=== PATIENT | female | born 1955 | race Caucasian/White ===

== ENCOUNTER 2020-09-27 11:30 | Outpatient (CLI) | payer MEDICARE, MEDICAID, SELFPAY ==
--- NOTE | 2020-09-27 11:39 | MM_ITS ---
WS: [id number] BILATERAL SCREENING DIGITAL MAMMOGRAM WITH CAD HISTORY: SCREENING COMPARISON: 06/04/2018 Bilateral CC and MLO views submitted. Computer aided detection analyzed. Breast composition: There are scattered areas of fibroglandular density. No suspicious masses, microc alcifications or architectural distortion. Benign calcifications in each breast are stable. Portion o f the posterior superior LEFT breast is obscured by cardiac generator. MM/[place] [id number] IMPRESSION: BI-RADS: 2-Benign FOLLOW UP: 1 Year Follow-up
== END 2020-09-27 11:31 | disposition home or self-care (01) ==
LOC: RADSHAW 11:34
PROVIDERS: Family Provider Internal Medicine; PCP Internal Medicine; Visit Provider Internal Medicine
DX: Z12.31 Encounter for screening mammogram for malignant neoplasm of breast (principal)
CPT/HCPCS: 77067

== ENCOUNTER 2021-06-02 11:49 | Emergency (ER) | payer MEDICARE, MEDICAID, SELFPAY ==
[2021-06-02 11:56] VITALS: BP 99/69; PULSE 87; RESP 17; TEMP 37.3; O2SAT 96; BMI 24.0
[2021-06-02 12:13] VITALS: BP 109/72; PULSE 82; RESP 16; TEMP 37; O2SAT 97
--- NOTE | 2021-06-02 12:17 | XRR_ITS ---
PROCEDURE INFORMATION: Exam: XR Left Tibia and Fibula Exam date and time: 06/02/2021 12:17 PM Age: 65 years old Clinical indication: Injury or trauma; Fall; Blunt trauma; Lower leg; Left; Prior surgery; Surgery type: Knee TECHNIQUE: Imaging protocol: XR Left tibia and fibula. Views: 2 views. COMPARISON: CR Knee 2 views, LEFT [id number] 07/12/2019 3:42 PM FINDINGS: Bones/joints: There is oblique fracture through the distal fibula. Patient is status post total knee replacement. The distal femoral and proximal tibial components appear intact with no obvious complication. There is an ankle joint effusion. There is a well corticated appearing osseous structure distal to the medial malleolus which has a chronic appearance. Soft tissues: There is edema and/or hematoma in the soft tissues surrounding the ankle and foot. XR/XR tibia fibula LT 2V [id number] IMPRESSION: There is an oblique fracture through the distal fibula with adjacent soft tissue hematoma and an ankle joint effusion.
--- NOTE | 2021-06-02 12:17 | XRR_ITS ---
PROCEDURE INFORMATION: Exam: XR Left Foot Exam date and time: 06/02/2021 12:17 PM Age: 65 years old Clinical indication: Injury or trauma; Fall; Blunt trauma; Foot; Left; Prior surgery; Surgery type: Knee TECHNIQUE: Imaging protocol: XR Left foot. Views: 3 or more views. COMPARISON: CR Knee 2 views, LEFT [id number] 07/12/2019 3:42 PM FINDINGS: Bones/joints: There is an oblique fracture through the distal fibula. There is a well corticated appearing osseous structure adjacent to the medial malleolus which has a chronic appearance. Soft tissues: There is edema and/or hematoma in the soft tissues surrounding the ankle and foot. XR/XR foot LT min 3V* [id number] IMPRESSION: There is an oblique fracture through the distal fibula with adjacent soft tissue hematoma.
--- NOTE | 2021-06-02 12:19 | W.ED.EXTPRO ---
HPI - Extremity Problem General: Chief complaint: Extremity Injury, Lower Stated complaint: left foot injury and urinary pain Time Seen by Provider: 06/02/21 12:09 Source: patient Limitations: no limitations History of Present Illness: HPI Narrative: This patient presents emerged part because of the left lower extremity injury. She states that she was getting ready to walk her dogs and they became quite rambunctious and she tripped over the dog's and there dog hotel. She states she landed twisting her left leg and foot. She states it is painful to bear weight on that left leg. She denies head injury or other injury. There was no prodrome it was pure ground-level fall. Has had left and right knee TKAs. She also has an associated question if we will obtain a urinalysis while she is here in the emergency department. She states that her daughter is concerned she might have a recurrent urinary tract infection. She states she has been having dark urine for the last couple of weeks. She denies any frequency dysuria back pain, blood in her urine, fevers etc. She apparently had rhabdo sometime in the past and they are concerned this might be operative again. She does relate that she had a prolonged seizure resulting in her rhabdo. She has had no change in her medications although she did stop her meloxicam in the last day or so because of she is concerned it might be an aspirin containing medication. She cannot take acetaminophen because of liver concerns. Onset (ago): hour(s) Pain Consistency: constant Location: left Quality: aching Radiation: none Relieving factors: elevation Exacerbating factors: weight bearing and walking Associated symptoms: Reports no associated symptoms; Deny chest pain, fever(s) or rash Review of Systems Const: Denies: fever(s) or chills Eyes: Denies: change in vision ENMT: Denies: throat pain or mouth pain Card: Denies: chest pain, palpitations or irregular heart rhythm Resp: Denies: dyspnea, productive cough or non-productive cough GI: Denies: abdominal pain, nausea or vomiting : Denies: flank pain, difficulty voiding, dysuria, urinary frequency or hematuria Musc: Denies: neck pain or back pain Skin/Breast: Denies: rash or skin swelling Neuro: Denies: headache(s), frequent falls, dizziness or vertigo Psych: Denies: depression Endo: Denies: polyuria or polydipsia Shakeel/Lymph: Reports: easy bruising; Denies: easy bleeding Physical Exam Narrative: EXAM NARRATIVE: She is alert, speech is goal-directed, Const: COMMON NORMALS: no acute distress, average body habitus and patient oriented x3 GENERAL APPEARANCE: cooperative ORIENTATION/CONSCIOUSNESS: Yes awake and Yes oriented to person HENMT: COMMON NORMALS: normocephalic and atraumatic HEAD & SCALP: normal to inspection, normocephalic and atraumatic FACE & SINUS: normal facial exam Eye: COMMON NORMALS: Equal, round and reactive pupils present and conjunctivae normal CONJUNCTIVA: Yes conjunctivae normal PUPIL: Yes Equal, round and reactive pupils present Neck/C-Spine: COMMON NORMALS: full ROM Chest: COMMONS NORMALS: normal inspection of the chest Resp: COMMON NORMALS: normal respiratory effort Cardio: COMMON NORMALS: Peripheral pulses 2+ throughout PERIPHERAL PULSES: Peripheral pulses 2+ throughout Back/Pelvis: COMMON NORMALS: thoracic and lumbar spine normal to inspection, no thoracic nor lumbar tenderness and thoraco-lumbar ROM normal Extremity: LEFT LOWER EXTREMITY: Yes knee joint, Yes lower leg (She has minimal tenderness over the fibular head. No deformity. She has s), Yes ankle joint (Left ankle is noted to be swollen and ecchymotic. Range of motion is limit) and Yes foot & digits (Left foot has swelling over the dorsal one third of the left foot. There i) Left foot and digits: Yes neurovascular exam Neuro: COMMON NORMALS: patient oriented x3, moves all extremities, no focal motor deficits and no sensory deficits noted SENSORIUM/ORIENTATION: Yes oriented to person GAIT: Yes Antalgic gait present (Gait is abnormal due to left lower extremity injury.) Course Reevaluation(s): Reevaluation #1: Discussed all findings with the patient to include normal urinalysis etc. She is still curious why her urine is dark but she does admit to me that she is taking vitamins and drinking at least 7-8 bottles of water a day. Her urinalysis is reassuring I feel likely this color changes related to vitamin ingestion. She has no other history at this time to suggest other etiologies. She acknowledges our discussion. Also advised orthopedics follow-up this coming week etc. She again was appreciative of care. Consultations: Consultation #1: Discussed with Dr. Corrales orthopedics qa automation architect. He recommended style of immobilization and he will follow her up as an outpatient. Time: 13:13 Vital Signs: Vital signs: Vital Signs Temperature 98.6 F 06/02/21 12:13 Pulse Rate 82 06/02/21 12:13 Respiratory Rate 16 06/02/21 12:28 Blood Pressure 109/72 06/02/21 12:13 Pulse Oximetry 99 06/02/21 12:28 MDM - Extremity (Nontraumatic) Lab Data: Labs: Lab Results 06/02/21 Range/Units 13:00 Urine Color Yellow (Yellow) Urine Appearance Clear (CLEAR) Urine pH 6 (5-7) Ur Specific Gravit y 1.005 (1.005-1.030) Urine Protein Neg (Negative) Urine Glucose (UA) Norm (Normal) Urine Ketones Negative (Negative) Urine Blood Neg (Negative) Urine Nitrate Negative (Negative) Urine Bilirubin Neg (Negative) Urine Urobilinogen Norm (Negative) mg/dL Ur Leukocyte Alyson ase Negative (Negative) Discharge Plan Discharge Condition: Stable Prescriptions: New morphine 15 mg tablet 15 mg PO BID PRN (Reason: pain) Qty: 10 RF: 0 No Action metoprolol succinate 25 mg tablet extended release 24 hr 25 mg PO DIRECTED 30 Days Qty: 60 RF: 3 olanzapine 5 mg tablet 5 mg PO DAILY Qty: 30 RF: 3 Discharge Orders: Discharge ED (Routine); Ordered 06/02/21 Ordered By: Vinny Mauricio Referrals: Odilia Goetz MD [Primary Care Provider] - Anthony Corrales MD [Physician] - 4-7 days (ED follow up for distal fibular fx) Discharge Diet: Usual diet Discharge Activity: Use walker/crutches as instructed and Return to work/school after cleared by PCP/Specialist Patient Instructions: Ankle Fracture (ED) Coding Level of Care Code ED Adult Protective Caseworker for Tara Fwd Exam Comprehensive
[2021-06-02 12:28] VITALS: RESP 16; O2SAT 99
[2021-06-02] MEDS: morphine 4 mg/mL SDV 1 mL IM (12:28)
[2021-06-02 13:21] LABS: Charge for UA Resulting for Rev
[2021-06-02 13:32] LABS: Specific Gravity, Urine 1.005 (1.005-1.030); Urine Appearance Clear (CLEAR); Urine Color Yellow (Yellow); pH Urine 6 (5-7)
[2021-06-02 13:33] LABS: Add Urine Microscopic? NO; Bilirubin Urine Neg (Negative); Blood Urine Neg (Negative); Glucose Urine UA Norm (Normal); Ketones Urine Negative (Negative); Leukocyte Esterase Urine Negative (Negative); Nitrate Urine Negative (Negative); Protein Urine Neg (Negative); Urobilinogen Urine Norm (Negative)
--- NOTE | 2021-06-02 13:33 | PC.NURSE ---
Patients pain is down to 5/10. Left extremity has boot in place by PT and she reports that made it feel much better .
[2021-06-02 13:48] VITALS: BP 129/90; PULSE 76; RESP 16; TEMP 36.9; O2SAT 100
[2021-06-02 14:11] VITALS: BP 134/89; PULSE 80; RESP 16; TEMP 36.8
== END 2021-06-02 14:13 ==
PROVIDERS: Emergency Provider Emergency Medicine; PCP Internal Medicine
DX: M79.672 Pain in left foot (principal); R30.0 Dysuria
CPT/HCPCS: 73590; 73630; 81003; 96372; 97760; 99283; J2270; L4361

== ENCOUNTER → 2021-06-05 10:49 | Outpatient (BNVA) | payer MEDICARE, MEDICAID, SELFPAY | PROVIDERS: PCP Internal Medicine; Referring Provider Emergency Medicine; Visit Provider Orthopaedic Surgery | DX: S82.832A Other fracture of upper and lower end of left fibula, initial encounter for closed fracture (principal); X58.XXXA Exposure to other specified factors, initial encounter | CPT/HCPCS: 73610 ==

== ENCOUNTER → 2021-06-11 15:49 | Outpatient (BNVA) | payer MEDICARE, MEDICAID, SELFPAY | PROVIDERS: PCP Internal Medicine; Visit Provider Orthopaedic Surgery | DX: S82.832A Other fracture of upper and lower end of left fibula, initial encounter for closed fracture (principal); Z01.812 Encounter for preprocedural laboratory examination; Z20.822 Contact with and (suspected) exposure to COVID-19; X58.XXXA Exposure to other specified factors, initial encounter | CPT/HCPCS: 73610; 87635 ==

== ENCOUNTER 2021-06-13 11:34 | Day surgery (SDC) | payer MEDICARE, MEDICAID, SELFPAY ==
[2021-06-12 12:49] VITALS: BMI 23.7
[2021-06-13] VITALS (13 sets, daily range): BP systolic 113–161; BP diastolic 77–105; PULSE 75–101; RESP 16–20; TEMP 36.2–37.1; O2SAT 94–100
--- NOTE | 2021-06-13 | SCC_ITS ---
Procedure Done: Patient left lateral malleolar 10.3 seconds of fluoroscopic guidance, for a cumulative dose of 0.26 mGy, was provided to Dr. Corrales by the radiology department. C-arm images of the LEFT ankle were saved for the patient's permanent record. JANE
[2021-06-13] MEDS: sodium chloride 0.9% 1,000 ML 30 ML IV (12:32)
--- NOTE | 2021-06-13 13:28 | ANES.PREANE2 ---
Pre-Anesthetic Assessment Pre-Anesthetic Assessment: Height/Weight: Height 1.8 m Weight 77.111 kg Temp Pulse Resp BP Pulse Ox 98.7 F 101 H 19 H 113/77 94 06/13/21 11:54 06/13/21 11:54 06/13/21 11:54 06/13/21 11:54 06/13/21 11:54 Preop Diagnosis: Fracture Left lateral malleolus Proposed Procedure: Operation Date: 06/13/21 13:00 Proposed Procedures p ORIF Tibia/Fibula 25246 S82.832A(Left) - Anthony Corrales MD Was Beta Jeffry taken within 24 hours: Yes Was Clonidine taken within 24 hours: N/A Last intake: Intake Last Liquid Date 06/13/21 Last Liquid Time 07:00 Last Solid Date 06/12/21 Last Solid Time 20:00 Social: Social History: Tobacco and No alcohol Exam: Pre-Anes Outpt Exam: alert, oriented x 3 and regular rate & rhythm Airway: Submandibular: WNL Cervical ROM: WNL MP: 2 Dentition: Caps CV/HEM: CV/HEM: HTN Comments: Pacemaker GI: GI: GERD Neuropsych: Neuropsych: Anxiety and Depression Anesthetic Plan: ASA status: 3 Anesthesia: General Risk of > 500 ml blood loss (7ml/kg in children): No Meds/Allergies Current Medications: Current Medications Generic Name Dose Route Start Last Admin Trade Name Freq PRN Reason Stop Dose Admin Sodium Chloride 1,000 mls @ 30 ml s/hr 06/13/21 11:45 06/13/21 12:32 Sodium Chloride 0.9% IV 06/14/21 11:44 30 mls/hr .Q24H EVELIO Administration Data Anesthesia Cardiac Studies: No Data to Display
--- NOTE | 2021-06-13 14:21 | W.PM.OPSUD ---
Surgery/Procedure H&P Update DATE OF PROCEDURE: June 13, 2021 DATE H&P PERFORMED: 06/11/21 H&P UPDATE INFORMATION: I have reviewed H&P completed within last 30 days, I have examined patient prior to procedure and No changes to prior documentation PREOP DIAGNOSIS: Fracture Left lateral malleolus PLANNED PROCEDURE: Operation Date: 06/13/21 13:00 Proposed Procedures p ORIF Tibia/Fibula 86810 S82.832A(Left) - Anthony Corrales MD
--- NOTE | 2021-06-13 15:22 | XR_ITS ---
WS: [id number] C-ARM RADIOGRAPHS LEFT ANKLE; 3 IMAGES HISTORY: OR PICS COMPARISON: 06/11/2021 Intraoperative plate and screw fixation distal fibular fracture. Reduction of the fracture. The tibio talar joint space is normally aligned. Widened ankle mortise has been reduced. XR/XR ankle LT 2V [id number] IMPRESSION: Intraoperative fixation and reduction distal fibular fracture. Fracture now in good alignment. Normal alignment of the ankle mortise.
[2021-06-13] MEDS: fentaNYL 50 mcg/mL INJ 2mL IVP ×2 (15:35→15:40)
--- NOTE | 2021-06-13 15:35 | PM.OP ---
Operative Report Date of procedure: June 13, 2021 Pre-op Diagnosis: Fracture Left lateral malleolus Post-op diagnosis: same Post-op Findings: Same Procedure Done: Patient left lateral malleolar Implants: Garland 8 hole Varizx lateral malleolar plate Pathology: none sent Anesthesia: General Estimated blood loss (mL): 10 Tourniquet time (min): 31 Complications: None Findings: The patient had a spiral fracture of the lateral malleolus at the level of the mortise with widening of her medial tibiotalar clear space Condition: stable Disposition: PACU Procedure: The patient was taken to the operating room and given a general anesthesia. She was given 2 g of Ancef and positioned supine with a bump under the left hip. A timeout was performed. A tourniquet was inflated to 300 mmHg. A 5 cm long incision was made from the tip of the lateral malleolus proximally along the fibula dissection was carried down full-thickness through the periosteum and scar tissue about the fracture revealing the lateral malleolus. A lobster claw clamp was used to reduce the lateral malleolus and anterior to posterior 3.5 millimeters screw was placed to provide preliminary fixation. The plate was then contoured to the lateral fibula and fixed proximally to locking in 1 bicortical screw and distally with 1 nonlocking screw compressing the plate to bone and 3 additional locking screws. Intraoperative imaging showed satisfactory alignment of the fracture. Deep tissues were closed with 2-0 Vicryl. Skin was closed with skin ernestina. The incision was covered with Xeroflo gauze, Telfa, 4 x 4's and the leg wrapped in compressive web roll and an Ramsey wrap. She was placed in a postop boot, extubated, and taken recovery room in stable condition.
[2021-06-13] MEDS: HYDROmorphone 1 mg/mL INJ 1 mL 0.5 MG IVP ×2 (15:55→16:05)
--- NOTE | 2021-06-13 16:22 | ANE.PACU2 ---
Inpatient post-anesthesia follow up: Airway intact: Yes Vital signs: Temperature 97.6 F Pulse Rate 76 Respiratory Rate 17 Blood Pressure 152/87 Pulse Oximetry 100 Oxygen Delivery Me thod Room Air Oxygen Flow Rate Fraction of Inspir ed Oxygen Hydration adequate: Yes Nausea and vomiting: No Pain level: 2 Mental status: Baseline
[2021-06-13] MEDS: oxyCODONE 5 mg IR Tab/Cap PO (16:41)
== END 2021-06-13 17:10 | disposition home or self-care (01) ==
PROVIDERS: PCP Internal Medicine; Visit Provider Orthopaedic Surgery
PROC: 0QSK04Z Reposition Left Fibula with Internal Fixation Device, Open Approach (ICD-10-PCS; CPT 27828; principal; 2021-06-13 12:50)
DX: S82.62XA Displaced fracture of lateral malleolus of left fibula, initial encounter for closed fracture (principal); X58.XXXA Exposure to other specified factors, initial encounter; I10 Essential (primary) hypertension; Z95.0 Presence of cardiac pacemaker; K21.9 Gastro-esophageal reflux disease without esophagitis; F41.9 Anxiety disorder, unspecified; F32.9 Major depressive disorder, single episode, unspecified
CPT/HCPCS: 27792; 73600; 76000; 96365; C1713; J0690; J1100; J1170; J1580; J2405; J2704; J3010; J7030

== ENCOUNTER → 2021-07-16 14:45 | Outpatient (BNVA) | payer MEDICARE, MEDICAID, SELFPAY | PROVIDERS: PCP Internal Medicine; Visit Provider Orthopaedic Surgery | DX: S82.832A Other fracture of upper and lower end of left fibula, initial encounter for closed fracture (principal); X58.XXXA Exposure to other specified factors, initial encounter | CPT/HCPCS: 73610 ==

== ENCOUNTER → 2021-08-14 13:17 | Outpatient (BNVA) | payer MEDICARE, MEDICAID, SELFPAY | PROVIDERS: PCP Internal Medicine; Visit Provider Orthopaedic Surgery | DX: S82.832A Other fracture of upper and lower end of left fibula, initial encounter for closed fracture (principal); X58.XXXA Exposure to other specified factors, initial encounter | CPT/HCPCS: 73610 ==

== ENCOUNTER → 2021-09-04 13:49 | Outpatient (BNVA) | payer MEDICARE, MEDICAID, SELFPAY | PROVIDERS: PCP Internal Medicine; Visit Provider Orthopaedic Surgery | DX: Z98.890 Other specified postprocedural states (principal); S82.832D Other fracture of upper and lower end of left fibula, subsequent encounter for closed fracture with routine healing; X58.XXXD Exposure to other specified factors, subsequent encounter | CPT/HCPCS: 73610 ==

== ENCOUNTER → 2021-09-13 12:03 | Outpatient (BNVA) | payer MEDICARE, MEDICAID, SELFPAY | PROVIDERS: PCP Internal Medicine; Visit Provider Orthopaedic Surgery | DX: Z01.812 Encounter for preprocedural laboratory examination (principal); Z20.822 Contact with and (suspected) exposure to COVID-19 | CPT/HCPCS: 87635 ==

== ENCOUNTER 2021-09-19 11:36 | Day surgery (SDC) | payer MEDICARE, MEDICAID, SELFPAY ==
[2021-09-18 13:06] VITALS: BMI 23.0
[2021-09-19] VITALS (15 sets, daily range): BP systolic 146–168; BP diastolic 71–112; PULSE 59–97; RESP 5–25; TEMP 36.1–36.8; O2SAT 93–100
[2021-09-19] MEDS: sodium chloride 0.9% 1,000 ML 30 ML IV (12:41)
--- NOTE | 2021-09-19 13:01 | ANES.PREANE2 ---
Pre-Anesthetic Assessment Pre-Anesthetic Assessment: Height/Weight: Height 1.8 m Weight 74.843 kg Temp Pulse Resp BP Pulse Ox 97.4 F L 65 18 153/104 99 09/19/21 11:50 09/19/21 11:50 09/19/21 11:50 09/19/21 11:50 09/19/21 11:50 Preop Diagnosis: Painful deep hardware left ankle Proposed Procedure: Operation Date: 09/19/21 12:55 Proposed Procedures p Hardware Removal left fibula 89119 Z98.890(Left) - Anthony Corrales MD Was Beta Jeffry taken within 24 hours: Yes Was Clonidine taken within 24 hours: N/A Last intake: Intake Last Liquid Date 09/18/21 Last Liquid Time 21:00 Last Solid Date 09/18/21 Last Solid Time 15:00 Social: Social History: No alcohol and No tobacco Exam: Pre-Anes Outpt Exam: alert, oriented x 3, clear to auscultation bilaterally and regular rate & rhythm Airway: Submandibular: WNL Cervical ROM: WNL MP: 1 Dentition: Full History/ROS: No significant history except as noted Pulmonary: Pulmonary: None reported CV/HEM: CV/HEM: HTN : : None reported Hepatic: Hepatic: None reported GI: GI: GERD Metabolic: Metabolic: None reported Musc/skel: Musc/skel: None reported Neuropsych: Neuropsych: Anxiety, Depression and Seizure Comments: Patient states she has seizure disorder, not documented Anesthetic Plan: ASA status: 2 Anesthesia: Anesthesia Evaluation and General Risk of > 500 ml blood loss (7ml/kg in children): No Meds/Allergies Current Medications: Current Medications Generic Name Dose Route Start Last Admin Trade Name Freq PRN Reason Stop Dose Admin Sodium Chloride 1,000 mls @ 30 ml s/hr 09/19/21 12:00 09/19/21 12:41 Sodium Chloride 0.9% IV 09/20/21 11:59 30 mls/hr .Q24H EVELIO Administration Data Anesthesia Cardiac Studies: No Data to Display
--- NOTE | 2021-09-19 15:38 | W.PM.OPSUD ---
Surgery/Procedure H&P Update DATE OF PROCEDURE: September 19, 2021 DATE H&P PERFORMED: 09/04/21 H&P UPDATE INFORMATION: I have reviewed H&P completed within last 30 days PREOP DIAGNOSIS: Painful deep hardware left ankle PLANNED PROCEDURE: Operation Date: 09/19/21 12:55 Proposed Procedures p Hardware Removal Ankle(Left) - Anthony Corrales MD
--- NOTE | 2021-09-19 16:44 | PM.OP ---
Operative Report Date of procedure: September 19, 2021 Pre-op Diagnosis: Painful deep hardware left ankle Post-op diagnosis: same Post-op Findings: Same Procedure Done: Removal deep hardware left ankle Pathology: none sent Surgeon: Anthony Corrales Anesthesia: General Estimated blood loss (mL): 10 Tourniquet time (min): 17 Findings: No twin purulence or necrotic tissue was identified. She had. Healing of her fibular fracture Condition: stable Disposition: PACU Brief History: The patient had persistent nonhealing wound over her proximal incision. Radiographs showed union of the fracture. Hardware excision was chosen as can examination of the deep hardware could not be excluded as a source of the persistent wound. Procedure: The patient was taken to the operating room and given a general anesthesia. She is prepped and draped in supine position with a tourniquet on the left thigh. A timeout was performed. The tourniquet was inflated to 350 mmHg. The lateral scar was opened up and dissection carried down full-thickness to the lateral plate. Screws were easily removed with a screwdriver and the plate elevated. Prominent hypertrophic bone about the posterior plate through screw holes was removed with a rongeur. The wound was irrigated with saline. The skin was closed with a simple 1 Prolene vertical mattress sutures. Xeroform gauze and 4 x 4's and sterile dressings were applied. Patient was placed in a postop boot. She was extubated and taken to recovery in stable condition.
[2021-09-19] MEDS: fentaNYL 50 mcg/mL INJ 2mL IVP ×2 (16:51→17:02)
--- NOTE | 2021-09-19 17:34 | ANE.PACU2 ---
Inpatient post-anesthesia follow up: Airway intact: Yes Vital signs: Temperature 98.3 F Pulse Rate 79 Respiratory Rate 25 Blood Pressure 159/110 Pulse Oximetry 94 Oxygen Delivery Me thod Room Air Oxygen Flow Rate Fraction of Inspir ed Oxygen Hydration adequate: Yes Nausea and vomiting: No Pain level: 3 Mental status: Baseline
[2021-09-19] MEDS: oxyCODONE-APAP 5-325 mg Tablet 1 TAB PO (17:52)
== END 2021-09-19 18:15 | disposition home or self-care (01) ==
PROVIDERS: PCP Internal Medicine; Visit Provider Orthopaedic Surgery
PROC: (CPT 20680; principal; 2021-09-19 12:55)
DX: T84.84XA Pain due to internal orthopedic prosthetic devices, implants and grafts, initial encounter (principal); I10 Essential (primary) hypertension; K21.9 Gastro-esophageal reflux disease without esophagitis; Z79.82 Long term (current) use of aspirin
CPT/HCPCS: 20680; J0690; J1100; J1885; J2405; J2704; J3010; J7030

== ENCOUNTER 2021-10-05 15:13 | Emergency (ER) | payer MEDICARE, MEDICAID, SELFPAY ==
--- NOTE | 2021-10-05 15:18 | XRR_ITS ---
PROCEDURE INFORMATION: Exam: XR Left Ankle Exam date and time: 10/05/2021 3:18 PM Age: 66 years old Clinical indication: Injury or trauma; Fall; Sprain or strain; Ankle; Left; Additional info: Injury/pain TECHNIQUE: Imaging protocol: XR Left ankle. Views: 3 or more views. COMPARISON: CR XR ankle LT min 3V* [id number] 09/04/2021 1:56 PM FINDINGS: Bones/joints: Left distal fibular metaphyseal surgical screw with a chronic healed distal fibular metadiaphysis feel fracture. Moderate osteoarthritis about the tibiotalar joint. Soft tissues: Normal. XR/XR ankle LT min 3V* [id number] IMPRESSION: 1. Left distal fibular metaphyseal surgical screw with a chronic healed distal fibular metadiaphysis feel fracture. 2. Moderate osteoarthritis about the tibiotalar joint.
[2021-10-05 15:31] VITALS: BP 137/87; PULSE 92; RESP 16; TEMP 36.7; O2SAT 100
--- NOTE | 2021-10-05 15:42 | XRR_ITS ---
PROCEDURE INFORMATION: Exam: XR Left Foot Exam date and time: 10/05/2021 3:42 PM Age: 66 years old Clinical indication: Injury or trauma; Fall; Sprain or strain; Foot; Left TECHNIQUE: Imaging protocol: XR Left foot. Views: 1 or 2 views. COMPARISON: CR XR foot LT min 3V* [id number] 06/02/2021 12:45 PM FINDINGS: Bones/joints: Normal. Soft tissues: Normal. XR/XR foot LT 2V [id number] IMPRESSION: Negative for abnormality to the bones of the foot, please refer to same-day ankle film for additional findings
[2021-10-05 16:11] VITALS: BP 131/82; PULSE 89; RESP 16; TEMP 37.2; O2SAT 98
--- NOTE | 2021-10-05 16:15 | W.ED.LOWEXIN ---
HPI - Extremity Injury (Lower) General: Chief Complaint: Extremity Injury, Lower Stated Complaint: L ankle injury Time Seen by Provider: 10/05/21 16:14 Source: patient and family Mode of arrival: wheelchair Limitations: no limitations History of Present Illness: HPI Narrative: Patient is a 66-year-old female who presents to ED today for evaluation of left foot and ankle pain. Patient states earlier today she accidentally twisted her foot and ankle. Patient states she had a distal fibular fracture to the ankle back in May that ended up requiring ORIF. Hardware from this fracture was just removed a few weeks ago. She is concerned she may have re-fractured the extremity. She has no other injuries or complaints at this time. States surgical wounds are healing well. MD complaint: ankle injury and foot injury Onset (ago): hour(s) Injury: Left: ankle and foot Type of Injury: inversion Place: home Severity: moderate Relieving factors: immobilization Exacerbating factors: weight bearing, movement and palpation Context: other (twisting) Associated symptoms: Reports no associated symptoms Other symptoms: none Review of Systems Musc: Reports: extremity pain (L foot) and joint pain (L ankle); Denies: neck pain, back pain, joint swelling, joint redness or joint warmth Physical Exam Const: COMMON NORMALS: no acute distress, average body habitus, patient oriented x3, no limitations, healthy appearing, alert and well nourished GENERAL APPEARANCE: cooperative Extremity: COMMON NORMALS: capillary refill normal, no calf tenderness and no pedal edema GENERAL: Yes normal exam except as noted LEFT LOWER EXTREMITY: Yes ankle joint (mild tenderness to lateral ankle) Left ankle: Yes neurovascular exam (normal) and Yes foot & digits (TTP and mild swelling to dorsal foot) Left foot and digits: Yes neurovascular exam (normal) Neuro: COMMON NORMALS: patient oriented x3, moves all extremities, no focal motor deficits and no sensory deficits noted SENSORIUM/ORIENTATION: Yes alert GAIT: Yes Unable to assess gait Course Vital Signs: Vital signs: Vital Signs Temperature 98.9 F 10/05/21 16:11 Pulse Rate 89 10/05/21 16:11 Respiratory Rate 16 10/05/21 16:11 Blood Pressure 131/82 10/05/21 16:11 Pulse Oximetry 98 10/05/21 16:11 MDM - Extremity Injury (Lower) MDM Narrative: Medical decision making narrative: No new fxs on XRs. Her distal fib fracture from 4 months ago appears well healed. Recommend follow up with her surgeon if pain does not improve over the next week or so with conservtive treatment at home. Imaging Data^: XR L ankle: My impression: NAD Radiologist's impression: [facility] [place] [address] XRay Report Signed Patient: Ghazala Maharaj Unit #: [id number] : 1955 Age/Sex: 66 / F ADM Date: 10/05/21 Loc: ER Room/Bed: Attending Dr: Ordering Provider/Ordering MD: Erika Camacho Date of Service: 10/05/21 Procedure(s): XR ankle LT min 3V* [id number] Accession Number(s): [id number] Report Number: [id number] PROCEDURE INFORMATION: Exam: XR Left Ankle Exam date and time: 10/05/2021 3:18 PM Age: 66 years old Clinical indication: Injury or trauma; Fall; Sprain or strain; Ankle; Left; Additional info: Injury/pain TECHNIQUE: Imaging protocol: XR Left ankle. Views: 3 or more views. COMPARISON: CR XR ankle LT min 3V* [id number] 09/04/2021 1:56 PM FINDINGS: Bones/joints: Left distal fibular metaphyseal surgical screw with a chronic healed distal fibular metadiaphysis feel fracture. Moderate osteoarthritis about the tibiotalar joint. Soft tissues: Normal. XR/XR ankle LT min 3V* [id number] IMPRESSION: 1. Left distal fibular metaphyseal surgical screw with a chronic healed distal fibular metadiaphysis feel fracture. 2. Moderate osteoarthritis about the tibiotalar joint. Dictated By: Julio Layne MD Signed By: Julio Layne MD Signed Date/Time: 10/05/21 1727 DD/ 1518 XR L foot: My impression: NAD Radiologist's impression: [address] [place] [address] XRay Report Signed Patient: Ghazala Maharaj Unit #: [id number] : 1955 Age/Sex: 66 / F ADM Date: 10/05/21 Loc: ER Room/Bed: Attending Dr: Ordering Provider/Ordering MD: Erika Camacho Date of Service: 10/05/21 Procedure(s): XR foot LT 2V 86265 Accession Number(s): [id number] Report Number: [id number] PROCEDURE INFORMATION: Exam: XR Left Foot Exam date and time: 10/05/2021 3:42 PM Age: 66 years old Clinical indication: Injury or trauma; Fall; Sprain or strain; Foot; Left TECHNIQUE: Imaging protocol: XR Left foot. Views: 1 or 2 views. COMPARISON: CR XR foot LT min 3V* [id number] 06/02/2021 12:45 PM FINDINGS: Bones/joints: Normal. Soft tissues: Normal. XR/XR foot LT 2V [id number] IMPRESSION: Negative for abnormality to the bones of the foot, please refer to same-day ankle film for additional findings Dictated By: Julio Layne MD Signed By: Julio Layne MD Signed Date/Time: 10/05/21 1728 DD/ 1542 Discharge Plan Discharge Patient Disposition: Home Clinical Impression: Sprain of foot, left Qualifiers: Encounter type: initial encounter Qualified Code(s): S93.602A - Unspecified sprain of left foot, initial encounter Left ankle sprain Qualifiers: Encounter type: initial encounter Involved ligament of ankle: unspecified ligament Qualified Code(s): S93.402A - Sprain of unspecified ligament of left ankle, initial encounter Condition: Stable Prescriptions: No Action metoprolol succinate 25 mg tablet extended release 24 hr 25 mg PO DIRECTED 30 Days Qty: 60 RF: 3 olanzapine 5 mg tablet 5 mg PO DAILY Qty: 30 RF: 3 Percocet 5-325 mg tablet 1 tab PO Q4H PRN (Reason: pain) Qty: 30 RF: 0 Bactrim DS 800-160 mg tablet 1 tab PO BID Qty: 28 RF: 0 tizanidine 4 mg tablet 4 mg PO BID RF: 0 diphenoxylate-atropine 2.5-0.025 mg tablet 1 tab PO TID RF: 0 potassium chloride 20 mEq tablet,ER particles/crystals 20 meq PO DAILY RF: 0 trazodone 100 mg tablet 200 mg PO DAILY RF: 0 pantoprazole 40 mg tablet,delayed release (DR/EC) 40 mg PO DAILY RF: 0 aspirin 81 mg Tablet 81 mg PO DAILY RF: 0 oxybutynin chloride 5 mg tablet 5 mg PO DAILY RF: 0 Vitamin Plus Low Iron 27 mg iron- 1 mg tablet 1 tab PO DAILY RF: 0 Discharge Orders: Discharge ED (Routine); Ordered 10/05/21 Ordered By: Erika Camacho Referrals: Odilia Goetz MD [Primary Care Provider] - Coding Level of Care Code ED [facility] for [facility]
== END 2021-10-05 16:45 | disposition home or self-care (01) ==
PROVIDERS: Emergency Provider Physician Assistant; PCP Internal Medicine
DX: S93.602A Unspecified sprain of left foot, initial encounter (principal); X50.1XXA Overexertion from prolonged static or awkward postures, initial encounter; Y92.019 Unspecified place in single-family (private) house as the place of occurrence of the external cause; S93.402A Sprain of unspecified ligament of left ankle, initial encounter
CPT/HCPCS: 73610; 73620; 99283

== ENCOUNTER 2022-03-13 12:00 | Outpatient (CLI) | payer MEDICARE, MEDICAID, SELFPAY ==
--- NOTE | 2022-03-13 12:03 | MM_ITS ---
WS: [email or web address] VIEWS: MLO and CC views both breasts. 3D digital tomosynthesis is also included in this exam. Comparison made with prior exam of 06/04/2018, 09/27/2020. Findings: There was no sign of mass, architectural distortion or suspicious calcification in either breast. Fa tty MM/[place] [id number] Impression: BI-RADS: 2-Benign FOLLOW-UP: 1 Year Follow-up This mammogram was also analyzed by the Computer Aided Detection System R2 Imag e Motor Operator.
== END 2022-03-13 12:01 | disposition home or self-care (01) ==
LOC: RAD 12:01
PROVIDERS: PCP Internal Medicine; Visit Provider Internal Medicine
DX: Z12.31 Encounter for screening mammogram for malignant neoplasm of breast (principal)
CPT/HCPCS: 77063; 77067

== ENCOUNTER → 2023-03-19 11:10 | Outpatient (BNVA) | payer MEDICARE, MEDICAID, SELFPAY | PROVIDERS: PCP Internal Medicine; Visit Provider Specialist | DX: Z96.653 Presence of artificial knee joint, bilateral (principal); R29.898 Other symptoms and signs involving the musculoskeletal system | CPT/HCPCS: 73560; 73565; 99204 ==

== ENCOUNTER 2023-04-07 17:05 | Outpatient (RCR) | payer MEDICARE, MEDICAID, SELFPAY | END 2023-04-17 23:59 | disposition home or self-care (01) | LOC: SPT 17:05 | PROVIDERS: Visit Provider Specialist | DX: R53.1 Weakness (principal) | CPT/HCPCS: 97110; 97161 ==

== ENCOUNTER 2023-04-18 06:00 | Outpatient (RCR) | payer MEDICARE, MEDICAID, SELFPAY | END 2023-05-18 23:59 | disposition home or self-care (01) | LOC: SPT 06:00 | PROVIDERS: Visit Provider Specialist | DX: R53.1 Weakness (principal) | CPT/HCPCS: 97110 ==

== ENCOUNTER 2023-05-19 06:00 | Outpatient (RCR) | payer MEDICARE, MEDICAID, SELFPAY | END 2023-06-18 23:59 | disposition home or self-care (01) | LOC: SPT 06:00 | PROVIDERS: Visit Provider Specialist | DX: R53.1 Weakness (principal) | CPT/HCPCS: 97110 ==

== ENCOUNTER 2023-06-01 11:36 | Outpatient (CLI) | payer MEDICARE, MEDICAID, SELFPAY ==
--- NOTE | 2023-06-01 11:42 | MM_ITS ---
WS: [email or web address] BILATERAL 3D TOMOSYNTHESIS DIGITAL SCREENING MAMMOGRAPHY WITH CAD CLINICAL INFORMATION: SCREENING HISTORY: Screening mammogram. No current complaints. COMPARISON: 2021 TECHNIQUE: Bilateral CC and MLO views. FINDINGS: Scattered fibroglandular densities bilaterally. No suspicious focal mass, asymmetry, calcifications, or architectural distortion. No evidence of malignancy. A few incidental punctate calcifications. Par tially visualized cardiac pacer. IMPRESSION: MM/[place] [id number] BI-RADS: 2-Benign FOLLOW UP: 1 Year Follow-up Recommend return to annual screening mammography.
== END 2023-06-01 11:37 | disposition home or self-care (01) ==
PROVIDERS: PCP Internal Medicine; Visit Provider Internal Medicine
DX: Z12.31 Encounter for screening mammogram for malignant neoplasm of breast (principal)
CPT/HCPCS: 77063; 77067

== ENCOUNTER 2024-06-30 12:03 | Outpatient (CLI) | payer MEDICARE, MEDICAID, SELFPAY ==
--- NOTE | 2024-06-30 12:09 | MM_ITS ---
WS: [email or web address] SCREENING DIGITAL BREAST TOMOSYNTHESIS MAMMOGRAM WITH CAD HISTORY: SCREENING COMPARISON: 06/01/2023, 03/13/2022 Bilateral CC and MLO with tomosynthesis and synthetic mammography submitted. Computer aided detection analyzed. Breast composition: The breasts are almost entirely fatty. New slightly lobulated noncalcified mass m easuring 5 x 4 mm in the lateral RIGHT breast near 9:00. Mass is at a middle depth. Additional bilate ral benign calcifications in each breast. MM/[place] [id number] IMPRESSION: BI-RADS: 0 - Incomplete: Need additional imaging evaluation. FOLLOW UP: Need Additional Imaging Ultrasound RIGHT breast; 9:00 RIGHT breast.
== END 2024-06-30 12:04 | disposition home or self-care (01) ==
LOC: RAD 12:04
PROVIDERS: PCP Internal Medicine; Visit Provider Internal Medicine
DX: Z12.31 Encounter for screening mammogram for malignant neoplasm of breast (principal); R92.313 Mammographic fatty tissue density, bilateral breasts; N63.11 Unspecified lump in the right breast, upper outer quadrant; R92.1 Mammographic calcification found on diagnostic imaging of breast
CPT/HCPCS: 77063; 77067

== ENCOUNTER 2024-08-18 11:45 | Outpatient (CLI) | payer MEDICARE, MEDICAID, SELFPAY ==
--- NOTE | 2024-08-18 12:10 | US_ITS ---
WS: [email or web address] ULTRASOUND RIGHT BREAST HISTORY: MASS IN R BREAST COMPARISON: 06/30/2024, 06/01/2023 TECHNIQUE: 2-D and Doppler. Ultrasound is directed to the lateral RIGHT breast. Imaging is performed along 7-11 o'clock. No mass is identified. The mammographic abnormality is not identified by ultrasound. There is a small lymph n ode at 9:00, 7 cm from the nipple. US/US breast RT limited* [id number] IMPRESSION: BI-RADS: 3- Probably Benign FOLLOW-UP: 6 Month Follow-up Recommend diagnostic RIGHT mammogram in 6 months and ultrasound.
== END 2024-08-18 12:04 | disposition home or self-care (01) ==
PROVIDERS: PCP Internal Medicine; Visit Provider Internal Medicine
DX: N63.13 Unspecified lump in the right breast, lower outer quadrant (principal)
CPT/HCPCS: 76642

== ENCOUNTER 2025-01-24 07:37 | Outpatient (CLI) | payer MEDICARE, MEDICAID, SELFPAY ==
--- NOTE | 2025-01-24 07:53 | MM_ITS ---
WS: [email or web address] ADDITIONAL VIEWS RIGHT MAMMOGRAM WITH DIGITAL BREAST TOMOSYNTHESIS. RIGHT BREAST ULTRASOUND HISTORY: ABNORMAL FINDINGS ON BREAST IMAGING COMPARISON: 06/30/2024, 06/01/2023, breast ultrasound 08/18/2024 RIGHT MAMMOGRAM: Spot compression views and true ML with digital breast tomosynthesis and SM. Breast composition: The breasts are almost entirely fatty. Reidentified is the mass in the lateral RIGHT breast near the nipple line. Mass measures 5 x 4 x 4 mm. No increase in size since 06/30/2024. There is a central lucency and this may be a lymph node. Lymph node was identified on the prior ultrasound. No increase in size. Ultrasound to follow. RIGHT BREAST ULTRASOUND 2-D and color Doppler imaging submitted. Hypoechoic mass at 10:00, 5 cm from the nipple measures 0.4 x 0.3 x 0.5 cm. Mass has not increased in size. May potentially be a lymph node. MM/MM diag RT tomosynthesis [id number] IMPRESSION: BI-RADS: 3 - Probably Benign. FOLLOW UP: 6 Month Follow-up Patient to return in 6 months for annual mammogram. At that time additional laurent ging and possible ultrasound should be performed of the RIGHT breast mass.
== END 2025-01-24 07:38 | disposition home or self-care (01) ==
PROVIDERS: PCP Internal Medicine; Visit Provider Internal Medicine
DX: R92.8 Other abnormal and inconclusive findings on diagnostic imaging of breast (principal); R92.313 Mammographic fatty tissue density, bilateral breasts; N63.11 Unspecified lump in the right breast, upper outer quadrant
CPT/HCPCS: 76642; 77061; G0279

== ENCOUNTER 2025-06-28 14:01 | Outpatient (CLI) | payer MEDICARE, MEDICAID, SELFPAY ==
--- NOTE | 2025-06-28 14:09 | CT_ITS ---
WS: [email or web address] LDCT LUNG CANCER SCREENING TECHNIQUE: Noncontrast CT of the chest with coronal and sagittal reformatted images. CLINICAL INFORMATION: NICOTINE DEPENDENCE, CIGARETTES COMPARISON: None. DLP: 77.11 mGy.cm DIvol: Mean CTDIvol: 1.60 (mGy) All CT scans at [facility] use at least one of these dose optimization techniques: automated exposure control; mA and/or kV adjustment per patient size (includes targeted exams where dose is matched to clinical indication); or iterative reconstruction. FINDINGS: A few tiny scattered micronodules. Few tiny calcified granulomas. Subpleural nodularity RIGHT lower lobe. Subpleural and pleural-based nodules RIGHT lower lobe largest measuring 6 mm. Normal caliber thoracic aorta. Coronary calcification. No mediastinal or hilar lymphadenopathy. No axillary lymphadenopathy. Adrenal glands are normal. Fatty atrophy of the pancreas. Small esophageal hernia. Cardiac pacer. Postoperative changes lower cervical spine. Mild thoracic curve. Mild thoracic kyphosis. CT/CT lung screening [id number] IMPRESSION: LUNG-RADS: 2-Benign Appearance or Behavior FOLLOW UP: 12 Month: Continue annual screening with LDCT
== END 2025-06-28 14:02 | disposition home or self-care (01) ==
LOC: RAD 14:03
PROVIDERS: PCP Nurse Practitioner Family; Visit Provider Nurse Practitioner Family
DX: F17.210 Nicotine dependence, cigarettes, uncomplicated (principal); K44.9 Diaphragmatic hernia without obstruction or gangrene; R91.8 Other nonspecific abnormal finding of lung field
CPT/HCPCS: 71271

== ENCOUNTER 2025-07-04 12:53 | Outpatient (CLI) | payer MEDICARE, MEDICAID, SELFPAY ==
--- NOTE | 2025-07-04 12:59 | MM_ITS ---
WS: [email or web address] DIAGNOSTIC BILATERAL DIGITAL BREAST TOMOSYNTHESIS MAMMOGRAPHY WITH CAD RIGHT breast ultrasound, limited HISTORY: ABNORMAL MAMMO COMPARISON: 03/13/2022, 06/01/2023, 06/30/2024, 01/24/2025 TECHNIQUE: Bilateral craniocaudad, mediolateral oblique, and mediolateral views are submitted with tomosynthesis and SM. Spot compression RIGHT MLO and CC. Computer aided detection utilized. Breast composition: There are scattered areas of fibroglandular density. The asymmetry persists and has just slightly increased in size since 2022 in the lateral breast near 9:00. Mass is at a middle depth measuring 5 x 8 x 5 mm. Minimal increase in size since the prior study. No spiculation but the margins are lobulated. There are a few benign calcifications scattered within each breast. RIGHT breast ultrasound, limited. RIGHT breast mass is not as well visualized today and appears slightly smaller. Mass is measuring 4 x 3 x 5 mm and is close to the 8:00 axis. By mammography this mass has increased slightly in size. MM/MM diag BI tomosynthesis [id number] IMPRESSION: BI-RADS: 4 - Suspicious Finding - Biopsy Should Be Considered. FOLLOW UP: Biopsy Recommended Ultrasound-guided biopsy recommended of the hypoechoic mass in the RIGHT breast . This mass is in the lateral breast near the nipple line. The mass is not as w ell identified today by ultrasound but appears to to have slightly increased in size and density by mammography. Recommend ultrasound-guided biopsy. If this m ass is not definitely identified prior to the ultrasound patient may need to be rescheduled for stereotactic biopsy. Recommend first attempt by ultrasound.
== END 2025-07-04 12:54 | disposition home or self-care (01) ==
LOC: RAD 12:54
PROVIDERS: PCP Family Medicine; Visit Provider Nurse Practitioner Family
DX: R92.8 Other abnormal and inconclusive findings on diagnostic imaging of breast (principal)
CPT/HCPCS: 76642; 77062; G0279

== ENCOUNTER 2025-07-12 13:11 | Outpatient (CLI) | payer MEDICARE, MEDICAID, SELFPAY ==
--- NOTE | 2025-07-12 13:19 | US_ITS ---
WS: [email or web address] ULTRASOUND RIGHT BREAST, limited HISTORY: ABNORMAL R MAMMOGRAM COMPARISON: 07/04/2025, 01/24/2025, 06/30/2024 TECHNIQUE: 2-D and Doppler. Patient presents for possible biopsy of a RIGHT breast mass that is seen best by mammography. There is a small cluster of cysts in the RIGHT breast at 7:00, 3 cm from the nipple which was also identified on the prior ultrasound of 07/04/2025. Due to the very small size of this cluster of cysts is difficult to evaluate adequately. There is no additional mass identified. Significant amount of time was spent evaluating the RIGHT breast and no additional mass or abnormality is identified. This is a very small mass measuring 6 x 3 mm which is probably a small cluster of cysts. At this time recommend 6-month diagnostic mammogram and ultrasound follow-up instead of biopsy. I have discussed this in detail with the patient and she agrees and understands reason for not proceeding with the biopsy. US/US breast RT limited* [id number] IMPRESSION: BI-RADS: 3- Probably Benign FOLLOW-UP: 6 Month Follow-up Recommend 6-month diagnostic RIGHT mammography and RIGHT breast ultrasound.
== END 2025-07-12 13:12 | disposition home or self-care (01) ==
LOC: RAD 13:12
PROVIDERS: PCP Family Medicine; Visit Provider Family Medicine
DX: R92.8 Other abnormal and inconclusive findings on diagnostic imaging of breast (principal); N60.01 Solitary cyst of right breast; N63.13 Unspecified lump in the right breast, lower outer quadrant
CPT/HCPCS: 76642

== ENCOUNTER 2025-09-18 13:40 | Emergency (ER) | payer MEDICARE, MEDICAID, SELFPAY ==
--- NOTE | 2025-09-18 13:37 | XR_ITS ---
WS: [email or web address] Exam: XR chest 1V portable [id number] Date/Time of Exam: 09/18/2025 1:40 PM Reason For Exam: dyspnea/cough Comparison 09/11/2019. The lungs are clear and fully inflated. Cardiomediastinal silhouette is unremarkable for technique. Permanent cardiac pacer seen over the LEFT chest. Fusion hardware in the lower C-spine. DJD of both shoulders. XR/XR chest 1V portable [id number] IMPRESSION: 1. No acute cardiopulmonary finding.
--- NOTE | 2025-09-18 13:38 | XR_ITS ---
WS: [email or web address] Exam: XR knee LT 3V* [id number] Date/Time of Exam: 09/18/2025 1:40 PM Reason For Exam: trauma Comparison 03/19/2023. Total knee replacement remains in satisfactory position. No fracture or loosening. Large joint effusion in the suprapatellar bursa. Calcification is noted in the quadriceps tendon. XR/XR knee LT 3V* [id number] IMPRESSION: 1. Stable appearing LEFT total knee replacement. No fracture. 2. Large volume joint effusion in the suprapatellar bursa. Dystrophic calcifica tion in the quadriceps tendon.
[2025-09-18 13:42] VITALS: BP 149/88; PULSE 78; RESP 18; TEMP 36.8; O2SAT 95; BMI 27.8
--- NOTE | 2025-09-18 13:46 | W.ED.SYNCOPE ---
HPI - Syncope General: Chief Complaint: Syncope Stated Complaint: syncope - fall, LOC - left knee pain History of Present Illness: 70-year-old female presents emergency room after a near syncopal episode. Patient reports she has a history of POTS. She frequently has near syncopal episodes and falls. She fell several hours ago and the course of falling she twisted on her left knee and now has difficult time bearing weight on it. She previously had a left knee arthroplasty she denies any other injury. No pain in the hip or ankle on the left side. No vision changes no nausea she does not have any chest pain. Associated symptoms: Deny abdominal pain, chest pain or fever(s) Related Data Home Medications ?Medication ?Instructions ?Recorded ?Confirmed oxybutynin chloride 5 mg tablet 5 mg PO DAILY 06/12/21 03/19/23 potassium chloride 20 mEq 20 meq PO DAILY 06/12/21 03/19/23 tablet,extended release(part/cryst) vitamins with calcium 1 tab PO DAILY 06/12/21 03/19/23 no.72-iron 27 mg-folic acid 1 mg tablet ( Vitamins Plus Low Iron) tizanidine 4 mg tablet 4 mg PO BID 06/12/21 03/19/23 trazodone 100 mg tablet 200 mg PO DAILY 06/12/21 03/19/23 Previous Rx's ?Medication ?Instructions ?Recorded metoprolol succinate 25 mg 25 mg PO DIRECTED 30 days #60 11/09/19 tablet,extended release 24 hr tabs olanzapine 5 mg tablet 5 mg PO DAILY #30 tabs 10/23/20 apixaban 2.5 mg tablet (Eliquis) 2.5 mg PO BID #60 tabs 09/18/25 tramadol 50 mg tablet 50 mg PO Q6H PRN pain #20 tabs 09/18/25 Allergies Allergy/AdvReac Type Severity Reaction Status Date / Time acetaminophen (From Tylenol) Allergy Unknown Unknown Verified 03/19/23 11:29 levetiracetam (From Keppra) Allergy Unknown Unknown Verified 03/19/23 11:29 Review of Systems Const: Denies: fever(s) or chills Card: Denies: chest pain Resp: Denies: dyspnea GI: Denies: abdominal pain : Denies: dysuria, urinary frequency or urinary urgency Musc: Denies: neck pain or back pain Skin/Breast: Denies: rash Physical Exam Const: GENERAL APPEARANCE: cooperative ORIENTATION/CONSCIOUSNESS: Yes awake, Yes oriented to person, Yes oriented to place and Yes oriented to time HENMT: COMMON NORMALS: normocephalic, atraumatic and hearing grossly normal bilaterally HEAD & SCALP: normocephalic and atraumatic Resp: COMMON NORMALS: normal respiratory effort, No retractions, No use of accessory muscles and clear to auscultation bilaterally AUSCULTATION: clear to auscultation bilaterally Cardio: COMMON NORMALS: regular rate, regular rhythm and No murmurs present (Cardio) RATE: regular rate RHYTHM: regular rhythm GI: COMMON NORMALS: Soft to palpation and No hepatosplenomegaly present AUSCULTATION: Yes normoactive bowel sounds PALPATION: Yes Soft to palpation, No Tenderness to palpation present (GI), No Guarding due to palpation present (GI) and Yes No hepatosplenomegaly present Extremity: COMMON NORMALS: normal to inspection, capillary refill normal, no clubbing, cyanosis or edema, no calf tenderness and no pedal edema Neuro: SENSORIUM/ORIENTATION: Yes oriented to person, Yes oriented to place and Yes oriented to time Skin: COMMON NORMALS: no rashes or lesions noted GENERAL SKIN EXAM: no rashes or lesions noted Course Vital Signs: Vital signs: Vital Signs Temperature 98.3 F 09/18/25 13:42 Pulse Rate 83 09/18/25 17:28 Respiratory Rate 18 09/18/25 13:42 Blood Pressure 156/102 09/18/25 17:28 Pulse Oximetry 99 09/18/25 17:28 Oxygen Delivery Me thod Room Air 09/18/25 16:08 MDM - Syncope Medical Decision Making Medical decision making Social determinants: Patient lives alone does have family support in the area. I reviewed the patient's medical record. I reviewed the patient's current home meds Alternate historians: None Differential diagnosis fracture versus sprain versus soft tissue contusion versus bursitis Lab Review: Mild elevation in white count no signs of infection chemistries normal with the exception of slight elevation in her alk phos. Imaging: Plain film negative CT shows nondisplaced medial femoral condyle fracture left distal femur Assessment of risk: Level of risk: Moderate Hospitalization considerations: Consider hospitalization for for fracture however is nondisplaced discussed with Ortho they felt this could be managed as an outpatient Reexamination: Patient placed in a gown pain with flexion of the knee beyond what would be expected given plain x-ray we attempted to have her stand at the bedside she could not bear weight. CT was done which showed nondisplaced fracture Assessment and plan: Nondisplaced medial femoral condyle fracture. Will discharge the patient home in knee immobilizer crutches or walker. She is given crutches here states she has a walker at home ice elevate tramadol for pain referral to Dr. Duncan for fracture management. Discussed with Dr. Johnson who is on-call patient has seen Dr. Duncan in the past and would like to see her. Will put in referral to case management. Dr. Johnson recommends starting on prophylactic anticoagulation for DVT Eliquis 2.5 twice daily discussed with the patient Medical Records I reviewed the patient's medical records. Lab Data I reviewed the patient's lab results. 09/18/25 13:55 09/18/25 13:55 Radiology Impressions Chest X-Ray 09/18/25 13:37 IMPRESSION: 1. No acute cardiopulmonary finding. Knee X-Ray 09/18/25 13:38 IMPRESSION: 1. Stable appearing LEFT total knee replacement. No fracture. 2. Large volume joint effusion in the suprapatellar bursa. Dystrophic calcification in the quadriceps tendon. Knee CT 09/18/25 15:21 IMPRESSION: 1. Nondisplaced fracture of the medial femoral condyle. Extension to the femoral arthroplasty component cannot be excluded. 2. Large lipohemarthrosis. 3. Additional findings, as above. Laboratory Results WBC 12.39 10^3/uL (3.29-11.43) H 09/18/25 13:55 RBC 4.68 10^6/uL (3.85-5.65) 09/18/25 13:55 Hgb 14.00 g/dL (11.27-16.99) 09/18/25 13:55 Hct 41.3 % (36-47) 09/18/25 13:55 MCV 88.2 fl (85-98) 09/18/25 13:55 MCH 29.9 pg (27-33) 09/18/25 13:55 MCHC 33.9 g/dL (30-55) 09/18/25 13:55 RDW 12.2 % (12.1-15.1) 09/18/25 13:55 Plt Count 226 10^3/cmm (157-399) 09/18/25 13:55 MPV 9.1 fL (7.4-10.4) 09/18/25 13:55 Neut % (Auto) 80.1 % 09/18/25 13:55 Lymph % (Auto) 11.3 % 09/18/25 13:55 [place] % (Auto) 7.5 % 09/18/25 13:55 Eos % (Auto) 0.2 % 09/18/25 13:55 Baso % (Auto) 0.6 % 09/18/25 13:55 Neut # (Auto) 9.93 10^3/uL (1.8-7.7) H 09/18/25 13:55 Lymph # (Auto) 1.4 10^3/uL (0.8-4.8) 09/18/25 13:55 [place] # (Auto) 0.9 10^3/uL (0.2-0.9) 09/18/25 13:55 Eos # (Auto) 0.0 10^3/uL (0.0-0.8) 09/18/25 13:55 Baso # (Auto) 0.1 10^3/uL (0.0-0.1) 09/18/25 13:55 Nucleated RBC % (auto) 0 % 09/18/25 13:55 Nucleated RBCs # 0.0 /100WBC 09/18/25 13:55 Sodium 138 mmol/L (136-145) 09/18/25 13:55 Potassium 4.6 mmol/L (3.5-5.1) 09/18/25 13:55 Chloride 105 mmol/L (98-107) 09/18/25 13:55 Carbon Dioxide 22 mmol/L (22-29) 09/18/25 13:55 Anion Gap 15.6 (5-19) 09/18/25 13:55 BUN 14 mg/dL (8-23) 09/18/25 13:55 Creatinine 1.0 mg/dL (0.5-0.9) H 09/18/25 13:55 GFR Calculation 54.8 mL/min (90-130) L 09/18/25 13:55 Glucose 96 mg/dL (65-115) 09/18/25 13:55 Calculated Osmolality 286 mOsm/kg (285-295) 09/18/25 13:55 Calcium 9.9 mg/dL (8.5-10.5) 09/18/25 13:55 Total Bilirubin 0.4 mg/dL (0.15-1.2) 09/18/25 13:55 AST 29 U/L (0-32) 09/18/25 13:55 ALT 23 U/L (0-33) 09/18/25 13:55 Alkaline Phosphatase 158 U/L (35-105) H 09/18/25 13:55 Total Protein 7.4 g/dL (6.6-8.7) 09/18/25 13:55 Albumin 4.1 g/dL (3.5-5.2) 09/18/25 13:55 Globulin 3.3 g/dL (1.3-4.6) 09/18/25 13:55 All radiology interpretation(s) finalized by discharge Discharge Plan Discharge Patient Disposition: Home Clinical Impression: Closed fracture of medial condyle of distal end of left femur, History of bilateral knee arthroplasty Condition: Stable Prescriptions: New tramadol 50 mg tablet 50 mg PO Q6H PRN (Reason: pain) Qty: 20 0RF Eliquis 2.5 mg tablet 2.5 mg PO BID Qty: 60 0RF No Action metoprolol succinate 25 mg tablet extended release 24 hr 25 mg PO DIRECTED 30 Days Qty: 60 3RF Rx Instructions: Take 1.5 tabs in AM and 0.5 tabs in PM olanzapine 5 mg tablet 5 mg PO DAILY Qty: 30 3RF tizanidine 4 mg tablet 4 mg PO BID potassium chloride 20 mEq tablet,ER particles/crystals 20 meq PO DAILY trazodone 100 mg tablet 200 mg PO DAILY oxybutynin chloride 5 mg tablet 5 mg PO DAILY Vitamin Plus Low Iron 27 mg iron- 1 mg tablet 1 tab PO DAILY Discharge Orders: Discharge ED (Routine); Ordered 09/18/25 Ordered By: Jared Butler Referrals: Yuliet Lynch DO [Primary Care Provider, MANAGER IMAGING] Discharge Diet: Usual diet Discharge Activity: Limit activity as instructed Patient Instructions: Opioid Safety, Pain Management, Patient Portal & Iza Instructions Activity Restrictions/Additional Instructions: Thank you for choosing [facility] for your healthcare needs today. It is very important that you follow up as instructed or that you return to the Emergency Department should you have concerns or if your condition changes or worsens in any way. Emergency department visits are focused on emergent conditions, in some cases you may require further evaluation on an outpatient basis. You are seen emergency room after fall with complaint of left knee pain your x-ray on plain film was normal but you are not able to walk so we did a CT of your knee which showed a nondisplaced medial condyle fracture. I reviewed the imaging with the orthopedist on-call. They recommend a conservative approach as the fracture is nondisplaced and can heal in place recommend nonweightbearing with pain medication you can elevate and apply ice. You should use crutches or walker whichever is more convenient for you and least painful. Case management make arrangements for you to follow-up with Dr. Duncan who had done your previous knee replacement. (Please note that included in your discharge packet is information concerning opioid safety and pain management. This information is given to all patients were discharged from the ER regardless of their discharge diagnosis or the medicines they usually take or are prescribed.) Print Language: [place] Coding Level of Care Code ED Cad Engineer for Tara Duff
--- NOTE | 2025-09-18 13:57 | ECG_ITS ---
[facility] Test Date: 2025-09-18 Pat Name: Ghazala Maharaj Department: Room: Gender: Female Filler Spreader: : 1955 Requested By: Jared Jiang Order Number: [id number] Clair MD: Olinda Landeros M.D. Measurements Intervals [place] Rate: 75 P: 97 WI: 207 QRS: 26 QRSD: 86 T: 45 QT: 372 QTc: 415 Interpretive Statements ELECTRONIC ATRIAL PACEMAKER ABNORMAL RHYTHM ECG Compared to ECG 09/11/2019 15:54:38 T-wave abnormality no longer present Electronically Signed On 09-19-2025 19:01:42 BLACKTOP PAVER OPERATOR by Olinda Landeros M.D. [email or web address]
[2025-09-18 14:06] LABS: Hematocrit 41.3 % (36-47); Hemoglobin 14.00 g/dL (11.27-16.99); Mean Corpuscular HGB Conc 33.9 g/dL (30-55); Mean Corpuscular Hemoglobin 29.9 pg (27-33); Mean Corpuscular Volume 88.2 fl (85-98); Nucleated Red Blood Cells % 0 %; Platelet Count 226 10^3/cmm (157-399); Red Blood Count 4.68 10^6/uL (3.85-5.65); White Blood Count 12.39 10^3/uL (3.29-11.43)
[2025-09-18 14:20] VITALS: PULSE 75; O2SAT 97
[2025-09-18 14:30] VITALS: PULSE 75; O2SAT 95
[2025-09-18 14:33] LABS: Alanine Aminotransferase 23 U/L (0-33); Albumin Level 4.1 g/dL (3.5-5.2); Alkaline Phosphatase 158 U/L (35-105); Anion Gap 15.6 (5-19); Aspartate Amino Transferase 29 U/L (0-32); Blood Urea Nitrogen 14 mg/dL (8-23); Calcium 9.9 mg/dL (8.5-10.5); Carbon Dioxide 22 mmol/L (22-29); Chloride 105 mmol/L (98-107); Globulin 3.3 g/dL (1.3-4.6); Glucose 96 mg/dL (65-115); Osmolality Calculated 286 mOsm/kg (285-295); Potassium 4.6 mmol/L (3.5-5.1); Sodium 138 mmol/L (136-145); Total Protein 7.4 g/dL (6.6-8.7)
--- NOTE | 2025-09-18 15:21 | CTR_ITS ---
PROCEDURE INFORMATION: Exam: CT Left Lower Extremity Without Contrast, Knee Exam date and time: 09/18/2025 3:32 PM Age: 70 years old Clinical indication: Injury or trauma; Fall; Additional info: Knee pain after fall unable to ambulate TECHNIQUE: Imaging protocol: CT of the left lower extremity without contrast was performed. Exam focused on the knee. Axial, coronal and sagittal reformatted images were created and reviewed. Radiation optimization: All CT scans at this facility use at least one of these dose optimization techniques: automated exposure control; mA and/or kV adjustment per patient size (includes targeted exams where dose is matched to clinical indication); or iterative reconstruction. COMPARISON: CR XR knee LT 3V* [id number] 09/18/2025 2:04 PM RADIATION DOSE METRICS: Total DLP (mGy-cm): 404.49 FINDINGS: Bones/joints: Osteopenia. Total knee arthroplasty in place with associated streak artifact. Nondisplaced fracture of the medial femoral condyle. No dislocation. No erosive or destructive change. No lytic or blastic lesion. Large lipohemarthrosis. Soft tissues: Mild nonspecific anterior subcutaneous edema. CT/CT knee LT wo con* [id number] IMPRESSION: 1. Nondisplaced fracture of the medial femoral condyle. Extension to the femoral arthroplasty component cannot be excluded. 2. Large lipohemarthrosis. 3. Additional findings, as above.
[2025-09-18 16:08] VITALS: BP 156/105; PULSE 77; O2SAT 96
--- NOTE | 2025-09-18 16:08 | PC.NURSE ---
While flushing IV and asked if pt had an odd taste of the saline flush, pt states yeah IV med given. Then while flushing IV med pt voiced buring to site, while flushing noted area slight swelling, possible infiltration, IV removed with catheter intact. Pt educated on coban dressing and that medication will absorb.
[2025-09-18 17:28] VITALS: BP 156/102; PULSE 83; O2SAT 99
== END 2025-09-18 17:29 | disposition home or self-care (01) ==
PROVIDERS: Emergency Provider Family Medicine; PCP Family Medicine
DX: S72.435A Nondisplaced fracture of medial condyle of left femur, initial encounter for closed fracture (principal); Z96.653 Presence of artificial knee joint, bilateral; W19.XXXA Unspecified fall, initial encounter
CPT/HCPCS: 36415; 71045; 73562; 73700; 80053; 85025; 93005; 96374; 99285; E0114; J1885; L1830

== ENCOUNTER → 2025-09-20 13:55 | Outpatient (BNVA) | payer MEDICARE, MEDICAID, SELFPAY | PROVIDERS: PCP Family Medicine; Visit Provider Student in an Organized Health Care Education/Training Program | DX: S72.432A Displaced fracture of medial condyle of left femur, initial encounter for closed fracture (principal); W19.XXXA Unspecified fall, initial encounter; Z96.653 Presence of artificial knee joint, bilateral; Z46.89 Encounter for fitting and adjustment of other specified devices; S89.92XD Unspecified injury of left lower leg, subsequent encounter; X58.XXXD Exposure to other specified factors, subsequent encounter | CPT/HCPCS: 73562 ==

== ENCOUNTER 2025-09-20 15:10 | Outpatient (CLI) | payer MEDICARE, MEDICAID, SELFPAY | END 2025-09-20 15:11 | disposition home or self-care (01) | LOC: SPT 15:11 | PROVIDERS: PCP Family Medicine; Visit Provider Student in an Organized Health Care Education/Training Program | DX: Z46.89 Encounter for fitting and adjustment of other specified devices (principal); S89.92XD Unspecified injury of left lower leg, subsequent encounter; X58.XXXD Exposure to other specified factors, subsequent encounter | CPT/HCPCS: L1832 ==

== ENCOUNTER → 2025-10-04 13:25 | Outpatient (BNVA) | payer MEDICARE, MEDICAID, SELFPAY | PROVIDERS: PCP Family Medicine; Visit Provider Student in an Organized Health Care Education/Training Program | DX: S72.432A Displaced fracture of medial condyle of left femur, initial encounter for closed fracture (principal); W19.XXXA Unspecified fall, initial encounter; Z96.653 Presence of artificial knee joint, bilateral | CPT/HCPCS: 73562; 99213 ==